=== PATIENT | female | born 1970 | race Caucasian/White ===

== ENCOUNTER 2025-10-17 06:37 | Day surgery (SDC) | payer BC, MEDICAID ==
--- NOTE | 2025-10-07 15:29 | ELECTROCARDIOGRAPH REPORT ---
[facility] Test Date: 2025-10-07 Test Time: 15:26:42 Pat Name: RADHIKA MARCELINO Department: [facility]-PRE-OP Patient ID: [facility]-[id number] Room: Gender: F Counter Waitress/Waiter: claudine : 1970 Requested By: MARQUEZ STEINBERG Order Number: [id number] Reading MD: Dr. BYRON John Measurements Intervals Rosie Rate: 59 P: 59 SD: 134 QRS: -5 QRSD: 101 T: 36 QT: 462 QTc: 458 Interpretive Statements Sinus bradycardia RSR' in V1 or V2, right VCD or RVH Electronically Signed On 10-08-2025 19:20:[address] BYRON John Please click the below link to view image of tracing.
[2025-10-07 15:35] LABS: MEAN PLATELET VOLUME 8.1 FL (7.4-10.4); PRE OP HEMATOCRIT 34.3 % (35.0-45.0); PRE OP HEMOGLOBIN 11.4 g/dL (12.0-16.0); PRE OP PLATELET COUNT 201 X10'3 (140-440); PRE OP WHITE BLOOD COUNT 7.5 10'3 (4.8-10.8); RED CELL DISTRIBUTION WIDTH 14.3 % (11.5-14.5)
[2025-10-07 15:59] LABS: CREATININE 1.09 MG/DL (0.40-0.90); PRE OP ALT 37 U/L (30-65); PRE OP ANION GAP 8 (8-16); PRE OP AST 28 U/L (10-37); PRE OP BILIRUB, TOTAL 0.5 MG/DL (0.0-1.0); PRE OP GLUCOSE 88 MG/DL (70-104); PRE OP POTASSIUM 4.0 MMOL/L (3.4-5.1); PRE OP SODIUM 141 MMOL/L (135-145); TOTAL CARBON DIOXIDE 28.7 MMOL/L (24-32); eGFR 52 ML/MIN
[2025-10-17] VITALS (10 sets, daily range): BP systolic 88–107; BP diastolic 54–65; PULSE 66–87; RESP 9–18; TEMP 98.3; O2SAT 95–98
[~2025-10-17] VITALS: Ht 162.6 cm; Wt 65.6 kg
[2025-10-17] MEDS: clindamycin-Cleocin 900mg/D5W 50 ML IV ONE (05:30)
[~2025-10-17 06:37] MED LIST: BUS15T PO; CHOL100024 PO; CYAN250010 PO; METH-797 PO; MULT-1085 PO; PRAM0.5T12 PO; PRAZ2CAP2 PO; TRAZ-256 PO; ceFAZolin 2gm/dext,iso 50mL 50 ML IV ONE
[2025-10-17] MEDS ORDERED: BUPIVAcaine/PF 2.5mg/ml (0.25%) 10ml vial ONE (06:45)
[2025-10-17] MEDS ORDERED: LIDOcaine 2% (20mg/ml) 5ml vial ONE (06:45)
[2025-10-17] MEDS ORDERED: triamcinolone acetonide 40mg/ml inj ONE (06:46)
[2025-10-17] MEDS ORDERED: FLUO40CA (07:14)
[2025-10-17] MEDS: ringers solution, lacted 1,000 ML IV SCH (07:17)
[2025-10-17] MEDS ORDERED: fentaNYL/PF 50MCG/1 ML 2ML syringe ONE (08:39)
[2025-10-17] MEDS ORDERED: midazolam 1 mg/ML 2ml injection ONE (08:39)
[2025-10-17] MEDS ORDERED: propofol inj 20 ML IV ONE (08:52)
--- NOTE | 2025-10-17 08:57 | OPERATIVE REPORT ---
Operative Report Providers to ~ Date of Procedure: Oct 17, 2025 Pre-Operative Diagnosis: Recurrent carpal tunnel syndrome right wrist Post-Operative Diagnosis SAME as PRE-Op Procedure Performed Right wrist open carpal tunnel release, revision Surgeon: Oswaldo Young MD [employer] Attendant None Anesthesiologist: Vargas Brand Type of Anesthesia: Other (Local anesthetic with a IV sedation) Findings: Estimated Blood Loss: None Specimen Removed: None Description of Procedure: The patient is a 55-year-old woman who in the past and undergone a endoscopic carpal tunnel release. She initially had good results but had some recurrence recently consistent with carpal tunnel syndrome. Surgery is indicated to improve function. Risks and benefits were discussed with the patient. Some of the risks of this type of procedure specifically relate to failure to improve because of permanent nerve damage, infection, bleeding, scar pain and limited motion. She agreed to proceed. Once in the operating room the arm was prepped and draped in usual manner. Time-out procedure was observed. The arm was prepped and draped in usual manner. Local anesthetic was infiltrated proximal to the volar wrist crease. The tourniquet was inflated on the forearm to 250 mmHg. An incision was made 3 cm in length in the palm in line with the radial side of the ring finger. Incision was developed through the palmar fascia down to the reconstituted transverse carpal ligament. The ligament was released carefully and the median nerve was observed. Small adhesions were noted anterior to the median nerve and blunt dissection with a scissor tips were used to separate the nerve from the surrounding tissues. Decompression was done out to the transverse arch and then proximally to the wrist crease followed by release of the forearm fascia. The nerve was completely decompressed at this point. No obvious abnormalities were noted. The incision was irrigated and closed with a Prolene suture. A sterile dressing was then applied and the tourniquet was released. The hand perfused well and she was taken to the recovery room in stable condition OSWALDO YOUNG Jr., MD Oct 17, 2025 08:56
[2025-10-17] MEDS: acetaminophen 1,000mg/100ml IV 100 ML IV STA (09:37)
[2025-10-17] MEDS: HYDROcodone/acetaminophen 5mg/325mg tablet PO STA (09:52)
== END 2025-10-17 10:27 | disposition home or self-care (01) ==
LOC: PAS 06:37
PROVIDERS: ATTEND Orthopaedic Surgery Hand Surgery
DX: G56.01 Carpal tunnel syndrome, right upper limb (principal); E78.00 Pure hypercholesterolemia, unspecified; F41.9 Anxiety disorder, unspecified; F32.A Depression, unspecified; F43.10 Post-traumatic stress disorder, unspecified; Z79.891 Long term (current) use of opiate analgesic; Z79.899 Other long term (current) drug therapy; Z90.89 Acquired absence of other organs; Z98.51 Tubal ligation status; Z98.891 History of uterine scar from previous surgery; Z98.890 Other specified postprocedural states; Z88.0 Allergy status to penicillin; Z88.8 Allergy status to other drugs, medicaments and biological substances; Z82.49 Family history of ischemic heart disease and other diseases of the circulatory system
CPT/HCPCS: 36415; 64721; 80053; 82948; 85025; 93005; J0131; J2003; J2250; J2704; J3010; J3301; J3490; J7030; J7120; Z7506; Z7512; A4215; A6449